=== PATIENT | male | born 1950 | race Caucasian/White ===

== ENCOUNTER 2020-11-01 09:33 | Day surgery (SDC) | payer OTHER ==
[~2020-11-01] VITALS: Ht 167.6 cm; Wt 71.6 kg
--- NOTE | 2020-11-01 09:57 | NUR ---
11/01/20 0957 Karyn Argueta 1 TRY RIGHT HAND VALVE 2 TRY EIGHT UPPER ARM VALVE
--- NOTE | 2020-11-01 11:14 | NUR ---
11/01/20 1114 Akilah Naqvi LATE ENTRY PATIENT REFUSED MULTIPLE OFFERS OF PO FLUIDS
== END 2020-11-01 11:04 | disposition home or self-care (01) ==
LOC: ORSCSDS 09:33
PROVIDERS: Student in an Organized Health Care Education/Training Program
PROC: 0DB48ZX Excision of Esophagogastric Junction, Via Natural or Artificial Opening Endoscopic, Diagnostic (ICD-10-PCS; principal; 2020-11-01 10:45)
DX: K74.60 Unspecified cirrhosis of liver (principal); I10 Essential (primary) hypertension; I85.00 Esophageal varices without bleeding; E78.5 Hyperlipidemia, unspecified; E11.9 Type 2 diabetes mellitus without complications; K76.6 Portal hypertension; Z79.82 Long term (current) use of aspirin; Z79.84 Long term (current) use of oral hypoglycemic drugs; Z79.899 Other long term (current) drug therapy
CPT/HCPCS: 82947; 88305; J2704; J7120

== ENCOUNTER 2020-11-03 11:21 | Inpatient (IN) | payer OTHER ==
[~2020-11-03] VITALS: Ht 182.9 cm; Wt 70.2 kg
[2020-11-03] MEDS ORDERED: Nadolol20 MG PO ×2 (11:53)
[2020-11-03] MEDS ORDERED: LISI20 PO ×2 (11:54)
[2020-11-03] MEDS ORDERED: METFORMIN HCL500 M2 PO ×2 (11:54)
[2020-11-03] MEDS ORDERED: CONSTULOSE10 GM/155 PO ×2 (11:56)
[2020-11-03 12:13] LABS: Alanine Aminotransfer (ALT/SGP 29 U/L (12-78); Albumin, Blood 2.9 g/dL (3.4-5.0); Albumin/Globulin Ratio 0.7 (0.8-1.8); Alk Phos 123 U/L (50-136); Anion Gap 4 mmol/L (6-16); Aspartate Aminotrans (AST/SGOT 41 U/L (12-37); Bilirubin, Total 1.3 mg/dL (0.1-1.0); Blood Urea Nitrogen 14 mg/dL (8-24); Bun/Creatinine Ratio 16.9 (12.0-20.0); CO2, Blood 25 mmol/L (21-32); Calcium, Blood 8.8 mg/dL (8.5-10.1); Chloride, Blood 117 mmol/L (98-108); Creatinine, Blood 0.83 mg/dL (0.60-1.20); Ethanol (Alcohol), Blood, Med <3 mg/dL; Globulin, Blood 4.1 g/dL (2.2-4.0); Glomerular Filtration Rate >60 (60-); Glucose, Blood 122 mg/dL (70-99); International Normalized Ratio 1.22; Potassium, Blood 4.5 mmol/L (3.5-5.5); Prothrombin Time Results 12.9 Sec (9.7-11.5); Sodium, Blood 146 mmol/L (136-145)
[2020-11-03 12:27] LABS: BASOPHILS ABSOLUTE AUTO 0.03 K/mm3 (0.00-0.23); BASOPHILS PERCENT AUTO 1 % (0-2); EOSINOPHILS ABSOLUTE AUTO 0.27 K/mm3 (0.00-0.68); EOSINOPHILS PERCENT AUTO 5 % (0-6); Hematocrit 32.4 % (37.0-53.0); Hemoglobin 11.2 g/dL (13.5-17.5); IMMATURE GRAN ABSOLUTE AUTO 0.01 K/mm3 (0.00-0.10); IMMATURE GRAN PERCENT AUTO 0 % (0-1); LYMPHOCYTES ABSOLUTE AUTO 1.61 K/mm3 (0.84-5.20); LYMPHOCYTES PERCENT AUTO 30 % (21-46); MONOCYTES ABSOLUTE AUTO 0.43 K/mm3 (0.16-1.47); MONOCYTES PERCENT AUTO 8 % (4-13); Mean Corpuscular HGB 35.3 pg (26.0-34.0); Mean Corpuscular HGB Conc 34.6 g/dL (31.5-36.5); Mean Corpuscular Volume 102 fL (80-100); Mean Platelet Volume 10.8 fL (9.1-12.4); NEUTROPHILS ABSOLUTE AUTO 3.05 K/mm3 (1.96-9.15); NEUTROPHILS PERCENT AUTO 56 % (41-73); Platelet Count 74 K/mm3 (150-400); RDW Coefficient Variation 14.7 % (11.7-14.2); RDW Standard Deviation 55.9 fL (35.1-46.3); Red Blood Cell Count 3.17 M/mm3 (4.30-5.90)
[2020-11-03 13:54] LABS: U Amphetamine Screen Not Detected; U Barbituate Screen Not Detected; U Benzodiazapine Screen Not Detected; U Buprenorphine Screen Not Detected; U Cannabinoids Screen Not Detected; U Cocaine Screen Not Detected; U Methadone Screen Not Detected; U Methamphetamine Screen Not Detected; U Opiates Screen Not Detected; U Oxycodone Screen Not Detected; U Phencyclidine Screen Not Detected; U Propoxyphene Screen Not Detected
[2020-11-03] MEDS ORDERED: ASPI81CH PO ×2 (18:00)
[2020-11-03] MEDS ORDERED: FOLI1 PO ×2 (18:01)
[2020-11-03] MEDS ORDERED: IRON18 MG PO ×2 (18:01)
[2020-11-04 04:17] LABS: Hematocrit 31.8 % (37.0-53.0); Hemoglobin 11.3 g/dL (13.5-17.5); Mean Corpuscular HGB 35.8 pg (26.0-34.0); Mean Corpuscular HGB Conc 35.5 g/dL (31.5-36.5); Mean Corpuscular Volume 101 fL (80-100); Mean Platelet Volume 10.5 fL (9.1-12.4); Platelet Count 73 K/mm3 (150-400); RDW Coefficient Variation 14.7 % (11.7-14.2); Red Blood Cell Count 3.16 M/mm3 (4.30-5.90); White Blood Cell Count 6.18 K/mm3 (4.00-11.30)
[2020-11-04 04:32] LABS: Anion Gap 5 mmol/L (6-16); Blood Urea Nitrogen 14 mg/dL (8-24); Bun/Creatinine Ratio 17.9 (12.0-20.0); CO2, Blood 23 mmol/L (21-32); Calcium, Blood 8.6 mg/dL (8.5-10.1); Chloride, Blood 120 mmol/L (98-108); Creatinine, Blood 0.78 mg/dL (0.60-1.20); Glomerular Filtration Rate >60 (60-); Glucose, Blood 110 mg/dL (70-99); Potassium, Blood 3.7 mmol/L (3.5-5.5); Sodium, Blood 148 mmol/L (136-145)
--- NOTE | 2020-11-04 04:54 | NUR ---
SHIFT SUMMARY START OF SHIFT PT WAS ALERT AND ONLY ABLE TO CORRECTLY ANSWER HIS NAME. HIS MENTATION IMPROVED T/O THE NIGHT AND BY THE AM PT WAS ORIENTED TO PLACE AND TIME AND ABLE TO ANSWER MORE QUESTIONS CORRECTLY. WITHIN THE FIRST HOUR OF THE SHIFT THE PT HAD 3 EPISODES OF LARGE QUANTITY DIARRHEA. A RECTAL TUBE WAS PLACED AND DRAINED WELL, ENEMAS WERE GIVEN THROUGH TUBE. PT WAS INCONTINENT OF BOTH URINE AND STOOL. PT STATED HAVING TO URINATE SEVERAL TIMES BUT WAS UNABLE TO VOID. PT WAS BLADDER SCANNED AND SHOWED AROUND 670ML. PT BECAME MORE ORIENTED HE WAS ABLE TO VOID IN THE URINAL, PT VOIDED ONCE EMPTYING AROUND 200ML. MENTATION IMPROVES PT WILL MOST LIKELY BE ABLE TO EMPTY BLADDER COMPLETLY BY VOIDING ON OWN, WILL CONTINUE TO ASSESS. VITALS WERE STABLE. BP 120-130'S SYSTOLIC. HR 60-70'S. O2 SATS >96% ON ROOM AIR. PT DENIED ANY PAIN, CHEST PAIN, OR SHORTNESS OF BREATH. PT IS ASKING ABOUT GOING HOME.
--- NOTE | 2020-11-04 11:02 | NUR ---
MORNING UPDATE PT HAS BEEN RESTING IN BED WATCHING TV SINCE START OF SHIFT. PT HAS BEEN SWITCHED TO ORAL LACTULOSE AND THE RECTAL TUBE IS STILL DRAINING SMALL AMOUNTS OF WATERY STOOL; IT IS PLANNED FOR REMOVAL AFTER LUNCH TODAY. PT HAS NS RUNNING AND HAS BEEN COMPLIANT WITH CARE. PT WORKED WITH PHYSICAL THERAPY AND IS NOW UP IN THE CHAIR. PT DOES STILL HAVE SOME CONFUSION TO WHY HE IS HERE, HE IS SLOW TO RESPOND BUT IS LESS LETHARGIC THAN HE WAS ON ADMISSION.
--- NOTE | 2020-11-05 05:36 | NUR ---
SHIFT SUMMARY PATIENT IS ALERT AND ORIENTED TO SELF ONLY, COULD NOT STATE WHERE HE WAS OR YEAR. PATIENT IS COOPERATIVE WITH CARE. REPOSITIONED Q2 HOURS. INCONTINENT OF BOWEL. PATIENT WILL URINATE IN URINAL IF GIVEN TIME. 02 SATS >95% ON RA. VSS, NO ACUTE CHANGES. CALL LIGHT IN REACH, BED ALARM ON.
--- NOTE | 2020-11-05 11:37 | NUR ---
SHIFT SUMMARY PT ALERT AND ORIENTED. VS STABLE. DR. CALZADA IN WITH DC ORDERS. PT PROVIDED DC INSTRUCTIONS AND EDUCATION ON MEDICATOIN CHANGES. AT BEDSIDE. ALL QUESTIONS ANSWERED. PT TO BE TAKEN OUT BY WC.
== END 2020-11-05 12:00 | disposition home or self-care (01) | DRG 442 ==
LOC: ER 11:21 → PCU 15:09
PROVIDERS: Emergency Medicine; ADMIT Internal Medicine
DX: K72.00 Acute and subacute hepatic failure without coma (principal); K76.6 Portal hypertension; I85.00 Esophageal varices without bleeding; I10 Essential (primary) hypertension; E11.9 Type 2 diabetes mellitus without complications; K70.30 Alcoholic cirrhosis of liver without ascites; D63.8 Anemia in other chronic diseases classified elsewhere; D69.6 Thrombocytopenia, unspecified; E78.5 Hyperlipidemia, unspecified; Z79.82 Long term (current) use of aspirin; Z79.84 Long term (current) use of oral hypoglycemic drugs; Z87.891 Personal history of nicotine dependence
CPT/HCPCS: 36415; 51701; 70450; 80048; 80053; 82140; 82947; 85025; 85027; 85610; 93005; 93010; 97110; 97116; 97161; 97165; 97530; 99285-25; A9270; G0480; J1650; J7030

== ENCOUNTER 2021-09-13 17:25 | Inpatient (IN) | payer OTHER ==
[~2021-09-13] VITALS: Ht 167.6 cm; Wt 74.5 kg
[~2021-09-13 17:25] MED LIST: ASPI81CH PO; CONSTULOSE10 GM/155 PO; FOLI1 PO; IRON18 MG PO; LISI20 PO; METFORMIN HCL500 M2 PO; Nadolol20 MG PO
[2021-09-13 18:17] LABS: Hematocrit 37.9 % (37.0-53.0); Hemoglobin 13.5 g/dL (13.5-17.5); Mean Corpuscular HGB 36.6 pg (26.0-34.0); Mean Corpuscular HGB Conc 35.6 g/dL (31.5-36.5); Mean Corpuscular Volume 103 fL (80-100); Mean Platelet Volume 11.3 fL (9.1-12.4); Platelet Count 79 K/mm3 (150-400); RDW Coefficient Variation 14.4 % (11.7-14.2); RDW Standard Deviation 53.8 fL (35.1-46.3); Red Blood Cell Count 3.69 M/mm3 (4.30-5.90); White Blood Cell Count 21.89 K/mm3 (4.00-11.30)
[2021-09-13 18:47] LABS: Alanine Aminotransfer (ALT/SGP 48 U/L (12-78); Albumin, Blood 2.3 g/dL (3.4-5.0); Albumin/Globulin Ratio 0.5 (0.8-1.8); Alk Phos 142 U/L (50-136); Anion Gap 9 mmol/L (6-16); Aspartate Aminotrans (AST/SGOT 48 U/L (12-37); Bilirubin, Total 4.7 mg/dL (0.1-1.0); Blood Urea Nitrogen 21 mg/dL (8-24); Bun/Creatinine Ratio 22.3 (12.0-20.0); CO2, Blood 24 mmol/L (21-32); Calcium, Blood 8.6 mg/dL (8.5-10.1); Chloride, Blood 96 mmol/L (98-108); Creatinine, Blood 0.94 mg/dL (0.60-1.20); Globulin, Blood 4.3 g/dL (2.2-4.0); Glomerular Filtration Rate >60 (60-); Glucose, Blood 337 mg/dL (70-99); Potassium, Blood 4.4 mmol/L (3.5-5.5); Sodium, Blood 129 mmol/L (136-145); Total Protein, Blood 6.6 g/dL (6.4-8.2)
[2021-09-13] MEDS ORDERED: FUROSEMIDE20 MG PO (18:49)
[2021-09-13] MEDS ORDERED: PRED5 PO (18:49)
[2021-09-13] MEDS ORDERED: TRIDERM28.4 GM TOP (18:49)
[2021-09-13] MEDS ORDERED: SPIRONOLACTONE50 MG PO (18:50)
[2021-09-13] MEDS ORDERED: NAPROXEN500 MG PO (18:50)
[2021-09-13] MEDS ORDERED: SILDENAFIL CITR50 MG PO (18:50)
[2021-09-13] MEDS ORDERED: PRAVASTATIN SOD20 MG PO (18:50)
[2021-09-13 18:54] LABS: Troponin I <0.015 ng/mL (0.000-0.040)
[2021-09-13 18:56] LABS: Thyroid Stimulating Hormone 0.896 uIU/mL (0.360-4.800)
[2021-09-13 18:57] LABS: Base Excess Venous -4.8 mmol/L; Bicarbonate Venous 21.5 mmol/L (24.0-30.0); PCO2 Venous 25.9 mmHg (38-42); PO2 Venous 149 mmHg (38-42); pH Blood Venous 7.47 (7.34-7.37)
[2021-09-13 19:17] LABS: BAND PERCENT MAN 25 % (0-8); BASOPHILS PERCENT MAN 0 % (0-2); EOSINOPHILS PERCENT MAN 0 % (0-6); METAMYELOCYTE ABSOLUTE MAN 0.21 K/mm3 (0.00-0.00); METAMYELOCYTE PERCENT MAN 1 % (0-0); MONOCYTES ABSOLUTE MAN 0.21 K/mm3 (0.16-1.47); MONOCYTES PERCENT MAN 1 % (4-13); NEUTROPHILS ABSOLUTE MAN 21.45 K/mm3 (1.96-9.15); SEG NEUTROPHILS PERCENT MAN 73 % (41-73); TOTAL CELLS COUNTED 100
[2021-09-13 19:42] LABS: Source, Urine Peds U Bag
[2021-09-13 19:45] LABS: Influenza A, PCR NEGATIVE (NEGATIVE); Influenza B, PCR NEGATIVE (NEGATIVE); Resp Syncytial Virus, PCR NEGATIVE (NEGATIVE); SARS-Cov-2 (COVID-19) PCR, MMC NEGATIVE (NEGATIVE)
[2021-09-13 19:46] LABS: Appearance, Urine Clear (Clear); Blood, Urine 5+ (Neg); Color, Urine Amber (P-Yellow); Glucose Qualitative, Urine 4+ (Neg); Ketones, Urine 1+ (Neg); Leukocyte Esterase, Urine 1+ (Neg); Nitrite, Urine Neg (Neg); Protein, Urine 1+ (Neg); Urobilinogen, Urine 2+ (Normal)
[2021-09-13 19:52] LABS: Bilirubin, Urine 1+ (Neg)
[2021-09-13 19:55] LABS: Bacteria Few /hpf; Red Blood Cells, Urine 25-50 /hpf (0-2); Squamous Epithelial Cells Few /hpf (Few)
[2021-09-13 19:56] LABS: Mucus Light (0-Heavy); WBC Cast 0-2 /lpf (0)
[2021-09-13 19:57] LABS: U Amphetamine Screen Not Detected; U Barbituate Screen Not Detected; U Benzodiazapine Screen Not Detected; U Buprenorphine Screen Not Detected; U Cannabinoids Screen Not Detected; U Cocaine Screen Not Detected; U Methadone Screen Not Detected; U Methamphetamine Screen Not Detected; U Opiates Screen Not Detected; U Oxycodone Screen Not Detected; U Phencyclidine Screen Not Detected; U Propoxyphene Screen Not Detected
[2021-09-14 04:59] LABS: Hematocrit 32.8 % (37.0-53.0); Hemoglobin 11.5 g/dL (13.5-17.5); Mean Corpuscular HGB 36.5 pg (26.0-34.0); Mean Corpuscular HGB Conc 35.1 g/dL (31.5-36.5); Mean Corpuscular Volume 104 fL (80-100); Mean Platelet Volume 11.4 fL (9.1-12.4); Platelet Count 70 K/mm3 (150-400); RDW Coefficient Variation 14.4 % (11.7-14.2); RDW Standard Deviation 55.2 fL (35.1-46.3); Red Blood Cell Count 3.15 M/mm3 (4.30-5.90); White Blood Cell Count 24.48 K/mm3 (4.00-11.30)
[2021-09-14 05:25] LABS: Alanine Aminotransfer (ALT/SGP 38 U/L (12-78); Albumin, Blood 2.1 g/dL (3.4-5.0); Albumin/Globulin Ratio 0.6 (0.8-1.8); Alk Phos 114 U/L (50-136); Anion Gap 9 mmol/L (6-16); Aspartate Aminotrans (AST/SGOT 33 U/L (12-37); Bilirubin, Total 3.7 mg/dL (0.1-1.0); Blood Urea Nitrogen 21 mg/dL (8-24); Bun/Creatinine Ratio 25.1 (12.0-20.0); CO2, Blood 25 mmol/L (21-32); Chloride, Blood 99 mmol/L (98-108); Creatinine, Blood 0.84 mg/dL (0.60-1.20); Globulin, Blood 3.6 g/dL (2.2-4.0); Glomerular Filtration Rate >60 (60-); Glucose, Blood 261 mg/dL (70-99); Potassium, Blood 4.1 mmol/L (3.5-5.5); Sodium, Blood 133 mmol/L (136-145); Total Protein, Blood 5.7 g/dL (6.4-8.2)
--- NOTE | 2021-09-14 06:00 | NUR ---
PATIENT ARRIVED JUST AFTER MIDNIGHT. A&OX2-3, PLEASANT AND COOPERATIVE WITH CARE. NO COMPLAINTS OF UNTOLERABLE PAIN DESPITE HIS END STAGE LIVER CANCER. QUESTIONS ABOUT WHETHER OR NOT VERITO IS STILL TAKING PREDNISONE. HE THOUGHT HE WAS, BUT COULD NOT TELL US WHY HE WOULDV'E BEEN TAKING IT. MULTIPLE SCARS OVER LOWER EXTREMITIES FROM CHRONIC PSORIASIS. DID NOT SEE ANY OPEN AREAS LAST NIGHT.
[2021-09-14 06:26] LABS: BAND PERCENT MAN 8 % (0-8); BASOPHILS PERCENT MAN 0 % (0-2); EOSINOPHILS PERCENT MAN 0 % (0-6); LYMPHOCYTES ABSOLUTE MAN 0.97 K/mm3 (0.84-5.20); LYMPHOCYTES PERCENT MAN 4 % (21-46); METAMYELOCYTE ABSOLUTE MAN 0.24 K/mm3 (0.00-0.00); METAMYELOCYTE PERCENT MAN 1 % (0-0); MONOCYTES ABSOLUTE MAN 1.46 K/mm3 (0.16-1.47); MONOCYTES PERCENT MAN 6 % (4-13); NEUTROPHILS ABSOLUTE MAN 21.78 K/mm3 (1.96-9.15); SEG NEUTROPHILS PERCENT MAN 81 % (41-73); TOTAL CELLS COUNTED 100
[2021-09-14 13:32] LABS: Adenovirus Not Detected (NOT DETECT); Coronavirus 229E Not Detected (NOT DETECT); Coronavirus HKU1 Not Detected (NOT DETECT); Coronavirus NL63 Not Detected (NOT DETECT); Coronavirus OC43 Not Detected (NOT DETECT); Human Metapneumovirus Not Detected (NOT DETECT); Human Rhinovirus/Enterovirus Not Detected (NOT DETECT); SARS-Cov-2 (COVID-19), BioFire Not Detected (NOT DETECT)
[2021-09-14 13:33] LABS: Bordetella pertussis Not Detected (NOT DETECT); Chlamydophila pneumoniae Not Detected (NOT DETECT); Influenza A/2009-H1 Not Detected (NOT DETECT); Influenza A/H1 Not Detected (NOT DETECT); Influenza A/H3 Not Detected (NOT DETECT); Influenza B Not Detected (NOT DETECT); Mycoplasma pneumoniae Not Detected (NOT DETECT); Parainfluenza Virus 1 Not Detected (NOT DETECT); Parainfluenza Virus 2 Not Detected (NOT DETECT); Parainfluenza Virus 3 Not Detected (NOT DETECT); Parainfluenza Virus 4 Not Detected (NOT DETECT); Respiratory Syncytial Virus Not Detected (NOT DETECT)
[2021-09-14] MEDS ORDERED: FURO20 PO (14:53)
--- NOTE | 2021-09-14 15:22 | NUR ---
REVIEW D'C WITH . NO NEW MEDS. REVIEW MEDS THAT WERE STOPPED DUE TO PATIENT HAVING LIVER CA. HAS FOLLOW UP APPOINTMENT NEXT WEEK WITH ONCOLOGY AND WEEK AFTER WITH PCP. ANSWER ALL QUESTIONS. VERBALIZES UNDERSTANDING.TAKEN DOWN TO POV IN W/C.
== END 2021-09-14 15:25 | disposition home or self-care (01) | DRG 866 ==
LOC: ER 17:25 → MEDS 21:10 → ERHOLD 21:10 → MEDS 09-14 00:20
PROVIDERS: Emergency Medicine; ADMIT Family Medicine
DX: B34.9 Viral infection, unspecified (principal); N17.9 Acute kidney failure, unspecified; E87.2 Acidosis; E87.1 Hypo-osmolality and hyponatremia; Z20.822 Contact with and (suspected) exposure to COVID-19; Z66 Do not resuscitate; D72.829 Elevated white blood cell count, unspecified; R79.89 Other specified abnormal findings of blood chemistry; D69.6 Thrombocytopenia, unspecified; D64.9 Anemia, unspecified; K70.30 Alcoholic cirrhosis of liver without ascites; K72.10 Chronic hepatic failure without coma; I10 Essential (primary) hypertension; E11.9 Type 2 diabetes mellitus without complications; E78.5 Hyperlipidemia, unspecified; Z98.890 Other specified postprocedural states; Z28.21 Immunization not carried out because of patient refusal; Z79.82 Long term (current) use of aspirin; Z79.84 Long term (current) use of oral hypoglycemic drugs; Z79.899 Other long term (current) drug therapy; Z85.05 Personal history of malignant neoplasm of liver
CPT/HCPCS: 0202U; 0241U; 36415; 51701; 71045; 74177; 80053; 81001; 82140; 82803; 82947; 83605; 84443; 84484; 85025; 87086; 87147; 93005; 93010; 96365; 96372; 97116; 97161; 97530; 99285-25; A9270; J0696; J1650; J1815; J7030; J7120; J7512; Q9967

== ENCOUNTER 2022-02-15 03:01 | Emergency (ER) | payer OTHER ==
[~2022-02-15] VITALS: Ht 172.7 cm; Wt 70.3 kg
[~2022-02-15 03:01] MED LIST changes: +FURO20 PO; +FUROSEMIDE20 MG PO; +NAPROXEN500 MG PO; +PRAVASTATIN SOD20 MG PO; +PRED5 PO; +SILDENAFIL CITR50 MG PO; +SPIRONOLACTONE50 MG PO; +TRIDERM28.4 GM TOP
[2022-02-15 03:53] LABS: Hematocrit 25.6 % (37.0-53.0); Hemoglobin 8.3 g/dL (13.5-17.5); Mean Corpuscular HGB 34.9 pg (26.0-34.0); Mean Corpuscular HGB Conc 32.4 g/dL (31.5-36.5); Mean Corpuscular Volume 108 fL (80-100); Mean Platelet Volume 12.3 fL (9.1-12.4); Platelet Count 89 K/mm3 (150-400); RDW Coefficient Variation 15.1 % (11.7-14.2); RDW Standard Deviation 59.5 fL (35.1-46.3); Red Blood Cell Count 2.38 M/mm3 (4.30-5.90)
[2022-02-15 04:09] LABS: Albumin, Blood 1.5 g/dL (3.4-5.0); Albumin/Globulin Ratio 0.4 (0.8-1.8); Bilirubin, Total 1.9 mg/dL (0.1-1.0); Bun/Creatinine Ratio 18.1 (12.0-20.0); Calcium, Blood 8.1 mg/dL (8.5-10.1); Creatinine, Blood 1.66 mg/dL (0.60-1.20); Globulin, Blood 4.1 g/dL (2.2-4.0); Potassium, Blood 5.2 mmol/L (3.5-5.5); Total Protein, Blood 5.6 g/dL (6.4-8.2)
[2022-02-15 04:14] LABS: BAND PERCENT MAN 10 % (0-8); BASOPHILS PERCENT MAN 0 % (0-2); EOSINOPHILS ABSOLUTE MAN 0.52 K/mm3 (0.00-0.68); EOSINOPHILS PERCENT MAN 6 % (0-6); LYMPHOCYTES ABSOLUTE MAN 0.52 K/mm3 (0.84-5.20); LYMPHOCYTES PERCENT MAN 6 % (21-46); METAMYELOCYTE ABSOLUTE MAN 0.08 K/mm3 (0.00-0.00); METAMYELOCYTE PERCENT MAN 1 % (0-0); MONOCYTES ABSOLUTE MAN 0.34 K/mm3 (0.16-1.47); MONOCYTES PERCENT MAN 4 % (4-13); NEUTROPHILS ABSOLUTE MAN 7.22 K/mm3 (1.96-9.15); SEG NEUTROPHILS PERCENT MAN 73 % (41-73); TOTAL CELLS COUNTED 100
[2022-02-15 04:20] LABS: Calcium, Ionized (POC) 1.04 mmol/L (1.10-1.46); Chloride (POC) 106 mmol/L (98-108); Creatinine (POC) 1.8 mg/dL (0.8-1.3); Glucose (ISTAT POC) 191 mg/dL (70-99); Hemoglobin (POC) 6.8 g/dL (13.5-17.5); Potassium (POC) 4.9 mmol/L (3.5-5.5); Sodium (POC) 140 mmol/L (135-148); Total CO2 (POC) 20 mmol/L (21-32)
[2022-02-15 05:19] LABS: Influenza A, PCR NEGATIVE (NEGATIVE); Influenza B, PCR NEGATIVE (NEGATIVE); Resp Syncytial Virus, PCR NEGATIVE (NEGATIVE); SARS-Cov-2 (COVID-19) PCR, MMC NEGATIVE (NEGATIVE)
[2022-02-15 05:29] LABS: International Normalized Ratio 1.5; Prothrombin Time Results 15.3 Sec (9.7-11.5)
[2022-02-15 08:10] LABS: D-Dimer, Quantitative 6.26 mg/L FEU (0.00-0.52)
== END 2022-02-15 10:58 | disposition short-term general hospital (02) ==
LOC: ER 03:01
PROVIDERS: Student in an Organized Health Care Education/Training Program
DX: K92.0 Hematemesis (principal); K92.1 Melena; R57.8 Other shock; D64.9 Anemia, unspecified; D69.6 Thrombocytopenia, unspecified; G93.41 Metabolic encephalopathy; E72.20 Disorder of urea cycle metabolism, unspecified; E87.2 Acidosis; D72.825 Bandemia; N17.9 Acute kidney failure, unspecified; I95.9 Hypotension, unspecified; I12.0 Hypertensive chronic kidney disease with stage 5 chronic kidney disease or end stage renal disease; E11.22 Type 2 diabetes mellitus with diabetic chronic kidney disease; N18.6 End stage renal disease; Z66 Do not resuscitate; Z79.899 Other long term (current) drug therapy; Z87.891 Personal history of nicotine dependence; Z20.822 Contact with and (suspected) exposure to COVID-19
CPT/HCPCS: 0241U; 36430; 36556; 71045; 80047; 80053; 82140; 83605; 84484; 85014; 85025; 85379; 85384; 85610; 85730; 86850; 86900; 86901; 86920; 93005; 93010; 96365-59; 96366-59; 96368; 96372-59; 96375-59; 96376-59; 99285-25; C1751; C9113; J0696; J2354; J2405; J2550; J2765; J7030; J7050; J7060; P9016; P9035; P9059